=== PATIENT | female | born 1965 | race Hispanic/Latino ===

== ENCOUNTER 2020-06-12 22:41 | Inpatient (IN) | payer OTHER ==
[~2020-06-12] VITALS: Ht 154.9 cm; Wt 68.0 kg
[2020-06-12] MEDS ORDERED: PANTOPRAZOLE 40 MG 10ML VIAL IV STA (22:46)
[2020-06-12] MEDS ORDERED: MORPHINE SULFATE 2 MG/ML SYR 1ML IV STA (22:46)
[2020-06-12] MEDS ORDERED: ONDANSETRON HCL INJ 2MG/ML 2ML 2 MG/ML VIAL IV STA (22:46)
[2020-06-12] MEDS ORDERED: MORPHINE SULFATE INJ 4 MG/ML INJ 1ML ONE (22:58)
[2020-06-12] MEDS ORDERED: DICYCLOMINE HCL 20 MG/2 ML VIAL IM ONE (23:00)
[2020-06-12] MEDS ORDERED: SODIUM CHLORIDE 0.9% 1000ML 1,000 ML IV SCH (23:00)
[2020-06-12 23:08] LABS: BASOPHILS # (AUTO) 0.1 (0.0-0.1); BASOPHILS % 0.5 % (0.0-1.0); HEMATOCRIT 42.9 % (34.2-44.1); HEMOGLOBIN 14.4 g/dL (12.0-16.0); LYMPHOCYTES # (AUTO) 0.7 (1.0-3.2); LYMPHOCYTES % 4.6 % (18.0-39.1); MEAN CORPUSCULAR HEMOGLOBIN 29.9 pg (28-32); MEAN CORPUSCULAR HGB CONC 33.6 g/dL (31-35); MEAN CORPUSCULAR VOLUME 89.2 fL (81-99); MONOCYTES # (AUTO) 0.3 (0.2-0.8); MONOCYTES % 1.9 % (4.4-11.3); NEUTROPHILS % 92.7 % (38.7-80.0); PLATELET COUNT 290 x10e3/uL (140-360); RED BLOOD COUNT 4.81 x10e6/uL (3.6-5.1); RED CELL DISTRIBUTION WIDTH 12.5 % (11.7-14.4)
[2020-06-12 23:09] LABS: BILIRUBIN,URINE NEGATIVE (NEGATIVE); CLARITY,URINE CLEAR (CLEAR); COLOR,URINE YELLOW (YELLOW); KETONES,URINE >=160 (NEGATIVE); LEUKOCYTE ESTERASE ,URINE NEGATIVE (NEGATIVE); NITRITE,URINE NEGATIVE (NEGATIVE); PROTEIN,URINE DIPSTICK 1+ (NEGATIVE); URINE UROBILINOGEN 1 mg/dL (0.2 - 1)
[2020-06-12 23:15] LABS: AMORPHOUS SEDIMENT,URINE FEW (FEW); BACTERIA,URINE FEW /HPF; EPITHELIAL CELLS,URINE MODERATE /LPF; RBC,URINE 0-5 /HPF (0-5); WBC,URINE (MAN) 0-5 /HPF (0-5)
--- OUTSIDE RECORDS SUMMARY | 2020-06-12 23:16 | XMS REPORT | Continuity of Care Document ---
Author Author [facility] t Organization [facility] Address [address] [place] [address] Phone Unavailable Care Team Providers Care Oracle Software Engineer Name Role Phone Hilda Osorio Attphys Problems Condition Name Condition Details Condition Category Status Onset Date Resolution Date Last Treatment Date Treating Clinician Comments Source CINE ESOPHAGRAM DX:K21.9=GASTRO-ESOPHAG CINE ESOPHAGRAM DX:K21.9=GASTRO-ESOPHAG Active 03/03/2016 [facility] Diagnosis Ac tive 2016-03-03 00:00:00 2016-03-14 08:34:00 M wolf Gunn UNK UNK Active 02/28/2016 [facility] Diagnosis Active 2016-02-28 00:00:00 2016-03-13 10:04:00 M wolf Gunn E66.01 E66. 01 Active 10/12/2015 [facility] Diagnosis Active 2015-10-12 00:00:00 2016-03-07 11:21:00 Db Gunn Allergies, Adverse Reactions, Alerts This patient has no known allergies or adverse reactions. Social History Social Habit Start Date Stop Date Quantity Comments Source Social History 2016-03-05 13:54:32 2016-03-05 13:54:32 Db Gunn Medications Ordered Medication Name Filled Medication Name Start Date Stop Da te Current Medication? Ordering Clinician Indication Dosage Frequency Signature (SIG) Comments Components Source Sodium Chloride 0.154 MEQ/ML Injectable Solution 2016-03-13 12:4 8:00 No 1,000 mL, Rate: 25 ml/hr, In fuse over: 40 hr, Route: IV, Dosing Weight 78.636 kg, Total Volume: 1,000, Start date: 03/13/16 7:48:00 CDT, Duration: 1 day, Stop date: 03/14/16 7:47:00 CDT Db sifuentes hormones 2016-03-05 13:47:00 Yes hor [place], PO, Daily, Refill(s) 0 Db Yeann Fish Oil 2016-03-05 13:46:00 Yes PO, Daily, 0 Refill([facility]) [facility] Vitamin B12 2016-03-05 13:46:00 Yes Daily, 0 Refill(s) [facility] multivitamin 2016-03-05 13:46:00 Yes Daily, 0 Refill(s) Db Luis A Hydrochlorothiazide 12.5 MG / Lisinopril 10 MG Oral Tablet 2016-03-05 13:44:00 Yes 1 tab, PO, Daily, # 30 tab, 0 R efill(s) [facility] Vital Signs Vital Name Observation Time Observation Value Comments Source Systolic (mm Hg) 2016-03-13 15:34:00 Oneal rial Luis A Diastolic (mm Hg) 2016-03-13 15:34:00 Mem orial Luis A Respitory Rate 2016-03-13 15:34:00 [facility] [place] Systolic (mm Hg) 2016-03-13 15:30:00 Oneal rial [place] Diastolic (mm Hg) 2016-03-13 15:30:00 Mem orial Luis A Respitory Rate 2016-03-13 15:30:00 Memori al Luis A Respitory Rate 2016-03-13 15:15:00 Memori al Luis A Systolic (mm Hg) 2016-03-13 15:15:00 Oneal rial [place] Diastolic (mm Hg) 2016-03-13 15:15:00 Mem orial [place] Temperature Oral (F) 2016-03-05 13:50:00 98.0 F [facility] Heart Rate 2016-03-05 13:50:00 [facility] Weight 2016-03-05 13:38:00 [facility] BMI Calculated 2016-03-05 13:38:00 Memori al [facility] A Height 2016-03-05 13:38:00 154.94 cm [facility] Procedures Procedure Date / Time Performed Performing Clinician [facility] Hernia repair<sup>1</sup> [facility] [place] Encounters Start Date/Time End Date/Time Encounter Type [facility] Encounter ID Source 2016-03-05 09:25:00 2016-04-03 23:59:00 Outpatient Lily Osorio W [facility] [id number] 2016-03-14 08:25:00 2016-03-14 23:59:00 Outpatient Lily Osorio [facility] [id number] 2016-03-13 07:28:00 2016-03-13 10:40:00 Out[place] Osor[place] [facility] [id number] Results Test Description Test Time Test Comments Results Result Comments Source SCR MAMM BILATERAL BRANDON CAD DIGITAL 2019-07-18 15:28:22 - SCR MAMM BILATERAL BRANDON CAD DIGITALBILATERAL DIGITAL SCREENING MAMMOGRAM 3D/2D WITH CAD: 07/15/2019CLINICAL: Asymptomatic. Digital breast tomosynthesis was performed in addition to routine CC and MLO views. Current mammographic images were evaluated by either a Zite M-Vu or a [employer] ImageNuokang Medicineer CAD (computer aided detection system). Comparison is made to exams dated 05/05/2017 mammogram - [facility], 11/10/2013 mammogram, and 10/18/2013 mammogram - [facility]. There are scattered fibroglandular tissues in both breasts. There is a stable benign-appearing asymmetry and a benign calcification in both breasts. No suspicious new mass, architectural distortion, malignant type calcification, or lymph node abnormality detected. Breast architecture is stable compared to prior exams.IMPRESSION: BENIGNThere is no mammographic evidence of malignancy. Resume annual screening mammography in one year. Bora Lyle M.D. rb/:07/18/2019 15:28:22 Railroad Track Inspector: Nu LEE, [facility] sent: BIRADS 1-2 Normal Mammogram BI-RADS: 2 Benign ANEMIA STUDY 2016-03-05 14:04:00 >2000 Mem orial Luis A CHEM PANEL 2016-03-05 14:04:00 2.5 Memor ial [facility] A CHEM PANEL 2016-03-05 14:04:00 102 Memor ial [place] CHEM PANEL 2016-03-05 14:04:00 13 Memor ial Luis A CHEM PANEL 2016-03-05 14:04:00 0.68 Memor [facility] [place] CHEM PANEL 2016-03-05 14:04:00 112 Memor ial [place] CHEM PANEL 2016-03-05 14:04:00 19 Memor [facility] [place] CHEM PANEL 2016-03-05 14:04:00 92 Memor ial Luis A CHEM PANEL 2016-03-05 14:04:00 0.3 Memor ial [place] CHEM PANEL 2016-03-05 14:04:00 13.8 Memor ial [facility] A CHEM PANEL 2016-03-05 14:04:00 3.7 Memor ial [place] CHEM PANEL 2016-03-05 14:04:00 1.1 Memor ial [facility] A CHEM PANEL 2016-03-05 14:04:00 105 Memor ial [facility] A CHEM PANEL 2016-03-05 14:04:00 25 Memor ial [place] CHEM PANEL 2016-03-05 14:04:00 3.8 Memor [facility] [place] CHEM PANEL 2016-03-05 14:04:00 140 Memor ial Luis A CHEM PANEL 2016-03-05 14:04:00 33 Memor [facility] [place] CHEM PANEL 2016-03-05 14:04:00 7.9 Memor [facility] [place] CHEM PANEL 2016-03-05 14:04:00 4.2 Memor [facility] [place] CHEM PANEL 2016-03-05 14:04:00 8.9 Memor ial Luis A CHEM PANEL 2016-03-05 14:04:00 15 Memor ial Luis A
--- OUTSIDE RECORDS SUMMARY | 2020-06-12 23:16 | XMS REPORT | Continuity of Care Document ---
Author Author [facility] [employer] Address Unknown Phone Unavailable Care Team Providers Care Bulk Mail Technician Name Role Phone [facility] Giftology Information In[place] Unavailable Un available Problems Problem Status Onset Date Classification Date Reported Comments Source CINE ESOPHAGRAM DX:K21.9=GASTRO-ESOPHAG Active 03/03/2016 [facility] UNK Active 0 02/28/2016 [facility] E66.01 Active 10/12/2015 [facility] Medications Medication Details Route Status Patient Instructions Ordering Provider Order Date Source Sodium Chloride 0.154 MEQ/ML Injectable Solution 1,000 mL, Rate: 25 ml/hr, Infuse over: 40 hr, Route: IV, Dosing Weight 78.636 kg, Total Volume: 1,000, Start date: 03/13/16 7:48:00 CDT, Duration: 1 day, Stop date: 03/14/16 7:47:00 CDT Inactive 03/13/2016 [facility] hormones hormones, PO, Daily, Refill(s) 0 Active 03/05/2016 [facility] Fish Oil PO, Daily, 0 Refill(s) Active 03/05/2016 [facility] Vitamin B12 Daily, 0 Refill(s) Active 03/05/2016 [facility] multivitamin Daily, 0 Refill(s) Active 03/05/2016 [facility] Hydrochlorothiazide 12.5 MG / Lisinopril 10 MG Oral Tablet 1 tab, PO, Daily, # 30 tab, 0 Refill(s) Active 03/05/2016 [facility] Allergies, Adverse Reactions, Alerts No Known Medication Allergies Immunizations No Data Provided for This Section Results Order Name Results Value Reference Range Date Interpretation Comments Source ANEMIA STUDY Vitamin B12 Lvl >20 00 254 - 1320 03/05/2016 [facility] CHEM PANEL Magnesium Lvl 2.5 1.8 - 2.4 03/05/2016 [facility] CHEM PANEL eGFR 102 03/05/2016 Result Comment: The eGFR is calculated using the CKD-EPI formula. In most young, healthy individuals the eGFR will be >90 mL/min/1.73m2. The eGFR declines with age. An eGFR of 60-89 may be normal in some populations, particularly the elderly, for whom the CKD-EPI formula has not been extensively validated. Use of the eGFR is not recommended in the following populations:

Individuals with unstable creatinine concentrations, including patients and those with serious co-morbid conditions.

Patients with extremes in muscle mass or diet.

The data above are obtained from the National Kidney Disease Education Program (NKDEP) which additionally recommends that when the eGFR is used in patients with extremes of body mass index for purposes of drug dosing, the eGFR should be multiplied by the estimated BMI. [facility] CHEM PANEL BUN 13 7 - 22 03/05/2016 [facility] CHEM PANEL Creatinine Lvl 0.68 0.50 - 1.40 03/05/2016 [facility] CHEM PANEL Glucose Lvl 112 70 - 99 03/05/2016 [facility] CHEM PANEL B/C Ratio 19 6 - 25 03/05/2016 [facility] CHEM PANEL Alk Phos 92 39 - 136 03/05/2016 [facility] CHEM PANEL Bili Total 0.3 0.2 - 1.3 03/05/2016 [facility] CHEM PANEL AGAP 13.8 10.0 - 20.0 03/05/2016 [facility] CHEM PANEL Globulin 3.7 2.0 - 4.0 03/05/2016 [facility] CHEM PANEL A/G Ratio 1.1 0.7 - 1.6 03/05/2016 [facility] CHEM PANEL Chloride Lvl 105 95 - 109 03/05/2016 [facility] CHEM PANEL CO2 25 24 - 32 03/05/2016 [facility] CHEM PANEL Potassium Lvl 3.8 3.5 - 5.1 03/05/2016 [facility] CHEM PANEL Sodium Lvl 140 135 - 145 03/05/2016 [facility] CHEM PANEL ALT 33 0 - 65 03/05/2016 [facility] CHEM PANEL Total Protein 7.9 6.4 - 8.4 03/05/2016 [facility] CHEM PANEL Albumin Lvl 4.2 3.5 - 5.0 03/05/2016 [facility] CHEM PANEL Calcium Lvl 8.9 8.5 - 10.5 03/05/2016 [facility] CHEM PANEL AST 15 0 - 37 03/05/2016 [facility] IMMUNOLOGY 21-Hydroxylase Antibody N EGATIVE NEGATIVE 03/05/2016 Result Comment:
Patient with indet erminate result may benefit from
serial testing to confirm positivity.
Test Performed at:
[facility]
[id number] [facility]
[place] [id number] Omar Hernandez MD, PhD [facility] Pathology Reports No Data Provided for This Section Diagnostic Reports Report Value Date Source Barium Swallow w Esophagus Function DX Barium Swallow w Esophagus Function DX CLINICAL HISTORY: K21.9 Gastro-esophageal reflux disease without esophagitis. preop for gastric sleeve COMPARISON: None TECHNIQUE: Thin barium was utilized for recumbent prone oblique and LPO images. Thick barium was utilized for upright imaging of the esophagus and pharynx. Hamburger meat mixed with barium was given to evaluate motility with solids. FINDINGS: There is no delay in passage of the barium bolus from the pharynx into the esophagus. The cricopharyngeus relaxes normally. There is no evidence for cricopharyngeal bar or Zenker's diverticulum. Prone and LPO images of the esophagus reveal small hiatal hernia approximately 1.5 cm in sagittal length. No significant delay in passage of barium from the esophagus to the stomach. Upright images with thick barium reveals no significant dysmotility. No mass lesions or strictures are visualized. Mild gastroesophageal reflux. Subsequently 2 separate swallows of a small piece of hamburger meat and barium were fluoroscopically followed through the length of the esophagus. There is no significant delay in passage of both solid boluses from the pharynx to the esophagus and subsequently into the stomach. IMPRESSION: Tiny hiatal hernia is visualized at the GE junction. Mild gastroesophageal reflux. Fluoroscopy Time: 2.0 minutes SL: [id number] 03/14/2016 [facility] Consultation Notes No Data Provided for This Section Discharge Summaries No Data Provided for This Section History and Physicals No Data Provided for This Section Vital Signs Vital Sign Value Date Comments Source Systolic (mm Hg) 126 03/13/2016 [facility] Diastolic (mm Hg) 76 03/13/2016 [facility] Respitory Rate 20 03/13/2016 [facility] Systolic (mm Hg) 126 03/13/2016 [facility] Diastolic (mm Hg) 76 03/13/2016 [facility] Respitory Rate 23 03/13/2016 [facility] Respitory Rate 12 03/13/2016 [facility] Systolic (mm Hg) 120 03/13/2016 [facility] Diastolic (mm Hg) 77 03/13/2016 [facility] Temperature Oral (F) 98.0 F 03/05/2016 [facility] Heart Rate 68 03/05/2016 [facility] Weight 78.636 03/05/2016 [facility] BMI Calculated 32.76 03/05/2016 [facility] Height 154.94 cm 03/05/2016 [facility] Encounters Location Location Details Encounter Type Encounter Number Reason For Visit Attending Provider ADM Date DC Date Status Source [facility] OP Recurring [id number] Mega Osorio 03/05/2016 04/04/2016 [facility] Bedded Outpatient [id number] Mega Osorio 03/13/2016 03/13/2016 [facility] Outpatient [id number] Mega Osorio 03/14/2016 03/15/2016 [facility] Procedures Procedure Code Date Perfomer Comments Source Hernia repair<sup>1</sup> [id number] 1999 [facility] Assessment and Plan No Data Provided for This Section Plan of Care No Data Provided for This Section Social History Social History Date Source Social History TypeResponse Substance Abuse Use: None. Alcohol Current, Type Wine. Frequency: 1-2 times per month. Smoking Status Never smoker; Concerns about tobacco use in household: No; Exposure to Tobacco Smoke None; Cigarette Smoking Last 365 Days No; Reg Smoking Cessation Counseling No 03/05/2016 [facility] Family History No Data Provided for This Section Advance Directives No Data Provided for This Section Functional Status No Data Provided for This Section
[2020-06-12 23:18] LABS: ALBUMIN 5.3 g/dL (3.5-5.0)
--- NOTE | 2020-06-12 23:23 | Emergency Department Note ---
History of Present Illnes History of Present Illness Chief Complaint: Abdominal Complaints History of Present Illness This is a 55 year old female PRESENTS VIA EMS WITH N/V AND ABD PAIN SINCE ABOUT 10 AM, STATES ENTIRE ABDOMEN HURTS AND HER LEGS ARE NOW ACHY WELL. DENIES FEVER, DENIES DIARRHEA. Historian: Patient, [place] [facility] Operator/EMS Arrival Mode: [facility] Onset (how long ago): hour(s) (13) Location: ABD Quality: PAIN, N/V Radiation: Reports non-radiation Severity: moderate Onset quality: sudden Duration (how long): hour(s) (13) Timing of current episode: constant Progression: worsening Chronicity: new Context: Denies recent illness, Denies recent surgery, Denies trauma/injury Relieving factors: none Exacerbating factors: none Associated symptoms: Reports malaise, Reports weakness, Reports other (ACHING TO LEGS) Treatments prior to arrival: none Past Medical/Family History Physician Review I have reviewed the patient's past medical and family history. Any updates have been documented here. Past Medical History Recent Fever: No Clinical Suspicion of Infectio: No New/Unexplained Change in Ment: No Past Medical History: Hypertension, Chronic Back Pain Other Surgery: gastric sleeve tummy tuck Social History Smoking Cessation: Never Smoker Counseling Performed: No Alcohol Use: None Any Illegal Drug Use: No Family History Family history of heart diseas: No Other Any Pre-Existing Lines (PICC,: No Review of Systems Review of Systems Constitutional: Reports no symptoms EENTM: Reports no symptoms Cardiovascular: Reports no symptoms Respiratory: Reports no symptoms Gastrointestinal: Reports as per HPI Genitourinary: Reports no symptoms Musculoskeletal: Reports as per HPI Integumentary: Reports no symptoms Neurological: Reports no symptoms Psychological: Reports no symptoms Endocrine: Reports no symptoms Hematological/Lymphatic: Reports no symptoms Physical Exam Related Data Allergies: Coded Allergies: DARIUSZ Inhibitors (Verified Allergy, Intermediate, 06/12/20) Triage Vital Signs Vital Signs Date Time Temp Pulse Resp B/P (MAP) Pulse Ox O2 Delivery O2 Flow Rate FiO2 06/12/20 22:43 98.4 118 17 150/98 100 Room Air Vital signs reviewed: Yes Physical Exam CONSTITUTIONAL Constitutional: Present well-developed, Present well-nourished, Present distressed (MILD) HENT HENT: Present normocephalic, Present atraumatic, Present mucosae dry, Present nose normal HENT L/R: Present left ext ear normal, Present right ext ear normal EYES Eyes: Reports PERRL, Reports conjunctivae normal NECK Neck: Present ROM normal PULMONARY Pulmonary: Present effort normal, Present breath sounds normal CARDIOVASCULAR Cardiovascular: Present regular rhythm, Present heart sounds normal, Present capillary refill normal, Present tachycardia (115) GASTROINTESTINAL Abdominal: Present soft, Present bowel sounds normal, Present tender (DIFFUSE MODERATE TENDERNESS TO PALPATION); Absent guarding, Absent mass, Absent rebound, Absent left CVA tenderness, Absent right CVA tenderness GENITOURINARY Genitourinary: Present exam deferred SKIN Skin: Present warm, Present dry MUSCULOSKELETAL Musculoskeletal: Present ROM normal NEUROLOGICAL Neurological: Present alert, Present oriented x 3, Present no gross motor or sensory deficits PSYCHOLOGICAL Psychological: Present mood/affect normal, Present judgement normal Results Laboratory Result Diagram: 06/12/20 2244 Laboratory Laboratory Tests Test 06/12/20 23:48 06/12/20 22:44 Lactic Acid Level 2.6 mmol/L (0.5-2.0) White Blood Count 15.07 x10e3/uL (4.8-10.8) Red Blood Count 4.81 x10e6/uL (3.6-5.1) Hemoglobin 14.4 g/dL (12.0-16.0) Hematocrit 42.9 % (34.2-44.1) Mean Corpuscular Volume 89.2 fL (81-99) Mean Corpuscular Hemoglobin 29.9 pg (28-32) Mean Corpuscular Hemoglobin Concent 33.6 g/dL (31-35) Red Cell Distribution Width 12.5 % (11.7-14.4) Platelet Count 290 x10e3/uL (140-360) Neutrophils (%) (Auto) 92.7 % (38.7-80.0) Lymphocytes (%) (Auto) 4.6 % (18.0-39.1) Monocytes (%) (Auto) 1.9 % (4.4-11.3) Eosinophils (%) (Auto) 0.0 % (0.0-6.0) Basophils (%) (Auto) 0.5 % (0.0-1.0) Neutrophils # (Auto) 14.0 (2.1-6.9) Lymphocytes # (Auto) 0.7 (1.0-3.2) Monocytes # (Auto) 0.3 (0.2-0.8) Eosinophils # (Auto) 0.0 (0.0-0.4) Basophils # (Auto) 0.1 (0.0-0.1) Absolute Immature Granulocyte (auto 0.05 x10e3/uL (0-0.1) Urine Color Yellow (YELLOW) Urine Clarity Clear (CLEAR) Urine pH 9 (5 - 7) Urine Specific [place] 1.020 (1.010-1.025) Urine Protein 1+ (NEGATIVE) Urine Glucose (UA) 2+ (NEGATIVE) Urine Ketones >=160 (NEGATIVE) Urine Blood Negative (NEGATIVE) Urine Nitrite Negative (NEGATIVE) Urine Bilirubin Negative (NEGATIVE) Urine Urobilinogen 1 mg/dL (0.2 - 1) Urine Leukocyte Esterase Negative (NEGATIVE) Urine RBC 0-5 /HPF (0-5) Urine WBC 0-5 /HPF (0-5) Urine Epithelial Cells Moderate /LPF (NONE) Urine Amorphous Sediment Few (FEW) Urine Bacteria Few /HPF (NONE) Sodium Level 138 mmol/L (136-145) Potassium Level 3.4 mmol/L (3.5-5.1) Chloride Level 100 mmol/L (98-107) Carbon Dioxide Level 17 mmol/L (22-29) Anion Gap 24.4 mmol/L (8-16) Blood Urea Nitrogen 11 mg/dL (7-26) Creatinine 0.82 mg/dL (0.57-1.11) Estimat Glomerular Filtration Rate > 60 ML/MIN (60-) BUN/Creatinine Ratio 13 (6-25) Glucose Level 191 mg/dL (74-118) Calcium Level 9.9 mg/dL (8.4-10.2) Total Bilirubin 0.6 mg/dL (0.2-1.2) Aspartate Amino Transf (AST/SGOT) 52 IU/L (5-34) Alanine Aminotransferase (ALT/SGPT) 66 IU/L (0-55) Alkaline Phosphatase 113 IU/L (40-150) Creatine Kinase 59 IU/L (29-168) Creatine Kinase MB 0.20 ng/mL (0-5.0) Troponin I < 0.001 ng/mL (0-0.300) Total Protein 8.4 g/dL (6.5-8.1) Albumin 5.3 g/dL (3.5-5.0) Globulin 3.1 g/dL (2.3-3.5) Albumin/Globulin Ratio 1.7 (0.8-2.0) Amylase Level 2559 U/L (25-125) Lipase 4741 U/L (8-78) Laboratory Tests Test 06/12/20 22:44 White Blood Count 15.07 x10e3/uL (4.8-10.8) Red Blood Count 4.81 x10e6/uL (3.6-5.1) Hemoglobin 14.4 g/dL (12.0-16.0) Hematocrit 42.9 % (34.2-44.1) Mean Corpuscular Volume 89.2 fL (81-99) Mean Corpuscular Hemoglobin 29.9 pg (28-32) Mean Corpuscular Hemoglobin Concent 33.6 g/dL (31-35) Red Cell Distribution Width 12.5 % (11.7-14.4) Platelet Count 290 x10e3/uL (140-360) Neutrophils (%) (Auto) 92.7 % (38.7-80.0) Lymphocytes (%) (Auto) 4.6 % (18.0-39.1) Monocytes (%) (Auto) 1.9 % (4.4-11.3) Eosinophils (%) (Auto) 0.0 % (0.0-6.0) Basophils (%) (Auto) 0.5 % (0.0-1.0) Neutrophils # (Auto) 14.0 (2.1-6.9) Lymphocytes # (Auto) 0.7 (1.0-3.2) Monocytes # (Auto) 0.3 (0.2-0.8) Eosinophils # (Auto) 0.0 (0.0-0.4) Basophils # (Auto) 0.1 (0.0-0.1) Absolute Immature Granulocyte (auto 0.05 x10e3/uL (0-0.1) Urine Color Yellow (YELLOW) Urine Clarity Clear (CLEAR) Urine pH 9 (5 - 7) Urine Specific [place] 1.020 (1.010-1.025) Urine Protein 1+ (NEGATIVE) Urine Glucose (UA) 2+ (NEGATIVE) Urine Ketones >=160 (NEGATIVE) Urine Blood Negative (NEGATIVE) Urine Nitrite Negative (NEGATIVE) Urine Bilirubin Negative (NEGATIVE) Urine Urobilinogen 1 mg/dL (0.2 - 1) Urine Leukocyte Esterase Negative (NEGATIVE) Urine RBC 0-5 /HPF (0-5) Urine WBC 0-5 /HPF (0-5) Urine Epithelial Cells Moderate /LPF (NONE) Urine Amorphous Sediment Few (FEW) Urine Bacteria Few /HPF (NONE) Lab results reviewed: Yes Imaging Imaging results reviewed: Yes Impressions Procedure: CT/CT ABDOMEN/PELVIS W Exam Date: 06/13/20 Exam Time: 2339 REPORT STATUS: Signed EXAM: CT Abdomen and Pelvis WITH contrast INDICATION: ^ABD PAIN ^[id number] ^2339 ^Y COMPARISON: None. TECHNIQUE: Abdomen and pelvis were scanned utilizing a multidetector helical scanner from the lung base to the pubic symphysis after administration of IV contrast. Coronal and sagittal reformations were obtained. Dose modulation, iterative reconstruction, and/or weight based adjustment of the mA/kV was utilized to reduce the radiation dose to as low as reasonably achievable. Routine protocol was performed. Scan was performed when during portal venous phase. IV CONTRAST: 100 mL of Isovue-370 ORAL CONTRAST: None COMPLICATIONS: None RADIATION DOSE: Total DLP: 353.37 mGy*cm Estimated effective dose: (DLP x 0.015 x size factor) mSv CTDIvol has been reviewed. It is below the limits set by the Radiation Protocol Committee (RPC). FINDINGS: LINES and TUBES: None. LOWER THORAX: Unremarkable HEPATOBILIARY: No focal hepatic lesions. No biliary ductal dilation. GALLBLADDER: No radio-opaque stones or sludge. No wall thickening. SPLEEN: No splenomegaly. PANCREAS: Mild peripancreatic edema, especially the body and tail portion. No focal masses or ductal dilatation. ADRENALS: No adrenal nodules KIDNEYS/URETERS: Kidneys enhance symmetrically. No hydronephrosis. No cystic or solid mass lesions. No stones. GI TRACT: No abnormal distention, wall thickening, or evidence of bowel obstruction. There are diverticula within the colon without evidence of diverticulitis. Appendix is normal. Evidence of gastric sleeve surgery. Small hiatal hernia. PELVIC ORGANS/BLADDER: Unremarkable. LYMPH NODES: No lymphadenopathy. VESSELS: Unremarkable. PERITONEUM / RETROPERITONEUM: No free air or fluid. BONES: Degenerative changes of the spine. L4 and L5 limbus vertebra. SOFT TISSUES: Left gluteal mild soft tissue emphysema, likely injection related. IMPRESSION: 1. Acute pancreatitis. 2. Colonic diverticulosis without evidence of diverticulitis. Signed by: Dr. Miguel Rose MD on 06/13/2020 12:20 AM Dictated By: MIGUEL ROSE MD Transcribed By: JACQUELYN on 06/13/2019 COPY TO: LILLIE OLIVIER MD~ Procedures 12 Lead ECG Interpretation ECG Interpretation : ECG: ECG 1 [employer]: Interpreted by ED physician Date: Jun 12, 2020 Time: 22:59 Rhythm: sinus rhythm Rate: normal BPM: 96 QRS axis: normal ST segments normal: Yes T wave inversion: V1, V2, V3, V4, V5 T waves flattening: V6 Other findings: no other findings Clinical Impression: abnormal ECG Assessment & Plan Medical Decision Making MDM PT WITH ABD PAIN, N/V CBC, CMP, AMYLASE, LIPASE, UA, CARDIAC ENZYMES, EKG, CT ABD/PELVIS ORDERED TO EVAL FOR PANCREATITIS, ELEVATED LFT'S, GALLSTONES, APPENDICITIS, COLITIS, DIVERTICULITIS, BOWEL OBSTRUCTION, MYOCARDIAL INFARCTION, UTI MORPHINE 4 MG IV ORDERED ZOFRAN 4 MG IV ORDERED PROTONIX 40 MG IV ORDERED BENTYL 20 MG IM ORDERED NS 1 LITER IV BOLUS ORDERED 2339 PT WITH WBC OF 15K, LACTIC ACID ORDERED, BLOOD CULTURES ORDERED, ZOSYN 3.375 GRAMS IV ORDERED INITIAL LACTIC 2.6 0020 SOURCE PANCREATITIS REPEAT LACTIC 1.[address] PIERRE AND DR ASHBY, ADMIT INPATIENT Assessment & Plan Final Impression: (1) Pancreatitis (2) Abdominal pain (3) Sepsis Depart Disposition: ADMITTED Last Vital Signs Date Time Temp Pulse Resp B/P (MAP) Pulse Ox O2 Delivery O2 Flow Rate FiO2 06/12/20 22:43 98.4 118 17 150/98 100 Room Air Medications in the ED Ondansetron HCl 4 mg NOW STAT IV Last administered on 06/12/20at 22:54; Admin Dose 4 MG; Start 06/12/20 at 22:46; Stop 06/12/20 at 23:01; Status DC Morphine Sulfate 4 mg NOW STAT IV Last administered on 06/12/20at 23:05; Admin Dose 4 MG; Start 06/12/20 at 22:46; Stop 06/12/20 at 23:01; Status DC Dicyclomine HCl 20 mg ONCE ONCE IM Last administered on 06/12/20at 23:05; Admin Dose 20 MG; Start 06/12/20 at 23:00; Stop 06/12/20 at 23:01; Status DC Pantoprazole Sodium 40 mg NOW STAT IV Last administered on 06/12/20at 23:05; Admin Dose 40 MG; Start 06/12/20 at 22:46; Stop 06/12/20 at 23:01; Status DC Sodium Chloride 1,000 ml @ 100 mls/hr Q10H IV Last administered on 06/12/20at 23:05; Admin Dose 100 MLS/HR; Start 06/12/20 at 23:00; Stop 07/12/20 at 22:59 Morphine Sulfate 4 mg STK-MED ONCE .ROUTE ; Start 06/12/20 at 22:58; Stop 06/12/20 at 22:51; Status DC LILLIE OLIVIER MD Jun 12, 2020 23:23
[2020-06-12 23:24] LABS: AMYLASE 2559 U/L (25-125)
[2020-06-12 23:26] LABS: ALANINE AMINOTRANSFERASE 66 IU/L (0-55); ALBUMIN/GLOBULIN RATIO 1.7 (0.8-2.0); ALKALINE PHOSPHATASE 113 IU/L (40-150); ANION GAP 24.4 mmol/L (8-16); BLOOD UREA NITROGEN 11 mg/dL (7-26); BUN/CREATININE RATIO 13 (6-25); CALCIUM 9.9 mg/dL (8.4-10.2); CARBON DIOXIDE 17 mmol/L (22-29); CHLORIDE 100 mmol/L (98-107); CREATINE KINASE 59 IU/L (29-168); CREATININE, SERUM 0.82 mg/dL (0.57-1.11); EST GLOMERULAR FILTRATION RATE > 60 ML/MIN (60-); GLUCOSE 191 mg/dL (74-118); POTASSIUM 3.4 mmol/L (3.5-5.1); SODIUM 138 mmol/L (136-145)
[2020-06-12 23:43] LABS: LIPASE 4741 U/L (8-78)
[2020-06-12] MEDS ORDERED: PIPER-TAZ 3.375 GM 50 ML IV ONE (23:45)
--- NOTE | 2020-06-13 00:09 | NUR ---
ER MD AND PRIMARY RN NOTIFIED AND AWARE OF CRITICAL LAB VALUE, LACTIC ACID 2.6.
[2020-06-13] MEDS ORDERED: SODIUM CHLORIDE 0.9% 1000ML 1,000 ML IV ONE ×2 (00:15)
--- NOTE | 2020-06-13 00:23 | Diagnostic Imaging Report ---
EXAM: CT Abdomen and Pelvis WITH contrast INDICATION: ^ABD PAIN ^[id number] ^2340 ^Y COMPARISON: None. TECHNIQUE: Abdomen and pelvis were scanned utilizing a multidetector helical scanner from the lung base to the pubic symphysis after administration of IV contrast. Coronal and sagittal reformations were obtained. Dose modulation, iterative reconstruction, and/or weight based adjustment of the mA/kV was utilized to reduce the radiation dose to as low as reasonably achievable. Routine protocol was performed. Scan was performed when during portal venous phase. IV CONTRAST: 100 mL of Isovue-370 ORAL CONTRAST: None COMPLICATIONS: None RADIATION DOSE: Total DLP: 353.37 mGy*cm Estimated effective dose: (DLP x 0.015 x size factor) mSv CTDIvol has been reviewed. It is below the limits set by the Radiation Protocol Committee (RPC). FINDINGS: LINES and TUBES: None. LOWER THORAX: Unremarkable HEPATOBILIARY: No focal hepatic lesions. No biliary ductal dilation. GALLBLADDER: No radio-opaque stones or sludge. No wall thickening. SPLEEN: No splenomegaly. PANCREAS: Mild peripancreatic edema, especially the body and tail portion. No focal masses or ductal dilatation. ADRENALS: No adrenal nodules KIDNEYS/URETERS: Kidneys enhance symmetrically. No hydronephrosis. No cystic or solid mass lesions. No stones. GI TRACT: No abnormal distention, wall thickening, or evidence of bowel obstruction. There are diverticula within the colon without evidence of diverticulitis. Appendix is normal. Evidence of gastric sleeve surgery. Small hiatal hernia. PELVIC ORGANS/BLADDER: Unremarkable. LYMPH NODES: No lymphadenopathy. VESSELS: Unremarkable. PERITONEUM / RETROPERITONEUM: No free air or fluid. BONES: Degenerative changes of the spine. L4 and L5 limbus vertebra. SOFT TISSUES: Left gluteal mild soft tissue emphysema, likely injection related. IMPRESSION: 1. Acute pancreatitis. 2. Colonic diverticulosis without evidence of diverticulitis. Signed by: Dr. Miguel Waters MD on 06/13/2020 12:20 AM
[2020-06-13] MEDS ORDERED: SODIUM CHLORIDE 0.9% 50ML 50 ML ONE (00:25)
[2020-06-13] MEDS ORDERED: IOPAMIDOL 370 MG/ML 200 ML INFUS..BTL INJ ONE (00:26)
[2020-06-13] MEDS ORDERED: ACETAMINOPHEN 325 MG TAB PO ONE (00:30)
[2020-06-13] MEDS ORDERED: ACETAMINOPHEN 325 MG TAB ONE (00:34)
--- OUTSIDE RECORDS SUMMARY | 2020-06-13 00:42 | XMS REPORT | Continuity of Care Document ---
Author Author [employer] Address Unknown Phone Unavailable Care Team Providers Care Licensed Midwife Name Role Phone [facility] [employer] Information [employer] Unavailable Un available Problems Problem Status Onset Date Classification Date Reported Comments Source CINE ESOPHAGRAM DX:K21.9=GASTRO-ESOPHAG Active 03/03/2016 [facility] UNK Active 0 02/28/2016 [facility] E66.01 Active 10/12/2015 [facility] Medications Medication Details Route Status Patient Instructions Ordering Provider Order Date Source Sodium Chloride 0.154 MEQ/ML Injectable Solution 1,000 mL, Rate: 25 ml/hr, Infuse over: 40 hr, Route: IV, Dosing Weight 78.636 kg, Total Volume: 1,000, Start date: 03/13/16 7:48:00 CDT, Duration: 1 day, Stop date: 03/14/16 7:47:00 CDT Inactive 03/13/2016 [facility] hormones hormones, PO, Daily, Refill(s) 0 Active 03/05/2016 [facility] Fish Oil PO, Daily, 0 Refill(s) Active 03/05/2016 [facility] Vitamin B12 Daily, 0 Refill(s) Active 03/05/2016 [facility] multivitamin Daily, 0 Refill(s) Active 03/05/2016 [facility] Hydrochlorothiazide 12.5 MG / Lisinopril 10 MG Oral Tablet 1 tab, PO, Daily, # 30 tab, 0 Refill(s) Active 03/05/2016 [facility] Allergies, Adverse Reactions, Alerts No Known Medication Allergies Immunizations No Data Provided for This Section Results Order Name Results Value Reference Range Date Interpretation Comments Source ANEMIA STUDY Vitamin B12 Lvl >20 00 254 - 1320 03/05/2016 [facility] CHEM PANEL Magnesium Lvl 2.5 1.8 - 2.4 03/05/2016 [facility] CHEM PANEL eGFR 102 03/05/2016 Result [...] PANEL BUN 13 7 - 22 03/05/2016 [facility] CHEM PANEL Creatinine Lvl 0.68 0.50 [...] testing to confirm positivity.
Test Performed at:
[facility]
[address]
[place] [id number] Omar Hernandez MD, PhD [facility] Pathology Reports No Data Provided for [...] gastroesophageal reflux. Fluoroscopy Time: 2.0 minutes SL: [id number] 03/14/2016 [facility] Consultation Notes No Data Provided for This Section Discharge Summaries No Data Provided for This Section History and Physicals No Data Provided for This Section Vital Signs Vital Sign Value Date Comments Source Systolic (mm Hg) 126 03/13/2016 [facility] Diastolic (mm Hg) 76 03/13/2016 [facility] Respitory Rate 20 03/13/2016 [facility] Systolic (mm Hg) 126 03/13/2016 [facility] Diastolic (mm Hg) 76 03/13/2016 [facility] Respitory Rate 23 03/13/2016 [facility] Respitory Rate 12 03/13/2016 [facility] Systolic (mm Hg) 120 03/13/2016 [facility] Diastolic (mm Hg) 77 03/13/2016 [facility] Temperature Oral (F) 98.0 F 03/05/2016 [facility] Heart Rate 68 03/05/2016 [facility] Weight 78.636 03/05/2016 [facility] BMI Calculated 32.76 03/05/2016 [facility] Height 154.94 cm 03/05/2016 [facility] Encounters Location Location Details Encounter Type Encounter Number Reason For Visit Attending Provider ADM Date DC Date Status Source [facility] OP Recurring [id number] Mega Osorio 03/05/2016 04/04/2016 [facility] Bedded Outpatient [id number] Mega Osorio 03/13/2016 03/13/2016 [facility] Outpatient [id number] Mega Osorio 03/14/2016 03/15/2016 [facility] Procedures Procedure Code Date Perfomer Comments Source Hernia repair<sup>1</sup> [id number] [facility] Assessment and Plan No Data Provided [...] No; Reg Smoking Cessation Counseling No 03/05/2016 [facility] Family History No Data Provided for This Section Advance Directives No Data Provided for This Section Functional Status No Data Provided for This Section
--- OUTSIDE RECORDS SUMMARY | 2020-06-13 00:42 | XMS REPORT | Continuity of Care Document ---
Author Author [facility] t Organization [facility] Address [address] [place] [address] Phone Unavailable Care Team Providers Care [employer] Business [employer] Name Role Phone Dada OLIVIER Attphys Unavailable Hilda Osorio Attphys Problems Condition Name Condition Details Condition Category Status Onset Date Resolution Date Last Treatment Date Treating Clinician Comments Source CINE ESOPHAGRAM DX:K21.9=GASTRO-ESOPHAG CINE ESOPHAGRAM DX:K21.9=GASTRO-ESOPHAG Active 03/03/2016 [facility] Diagnosis Ac tive 2016-03-03 00:00:00 2016-03-14 08:34:00 M wolf Gunn UNK UNK Active 02/28/2016 [facility] Diagnosis Active 2016-02-28 00:00:00 2016-03-13 10:04:00 M wolf Gunn E66.01 E66. 01 Active 10/12/2015 [facility] Diagnosis Active 2015-10-12 00:00:00 2016-03-07 [...] 1 day, Stop date: 03/14/16 7:47:00 CDT [facility] hormones 2016-03-05 13:47:00 Yes hor [place], PO, Daily, Refill(s) 0 [facility] Fish Oil 2016-03-05 13:46:00 Yes PO, Daily, 0 Refill(s) [facility] Vitamin B12 2016-03-05 13:46:00 Yes Daily, 0 Refill(s) [facility] multivitamin 2016-03-05 13:46:00 Yes Daily, 0 Refill(s) [facility] [place] Hydrochlorothiazide 12.5 MG / Lisinopril 10 MG Oral Tablet 2016-03-05 13:44:00 Yes 1 tab, PO, Daily, # 30 tab, 0 R efill(s) [facility] Vital Signs Vital Name Observation Time Observation Value Comments Source Systolic (mm Hg) 2016-03-13 15:34:00 Oneal rial Luis A Diastolic (mm Hg) 2016-03-13 15:34:00 Mem orial [place] Respitory Rate 2016-03-13 15:34:00 Memori al [place] Systolic (mm Hg) 2016-03-13 15:30:00 Oneal rial Luis A Diastolic (mm Hg) 2016-03-13 15:30:00 Mem orial [place] Respitory Rate 2016-03-13 15:30:00 Memori al [place] Respitory Rate 2016-03-13 15:15:00 Memori al Luis A Systolic (mm Hg) 2016-03-13 15:15:00 Oneal rial Luis A Diastolic (mm Hg) 2016-03-13 15:15:00 Mem orial Luis A Temperature Oral (F) 2016-03-05 13:50:00 98.0 F [facility] Heart Rate 2016-03-05 13:50:00 [facility] Weight 2016-03-05 13:38:00 [facility] BMI Calculated 2016-03-05 13:38:00 Mazin al [place] Height 2016-03-05 13:38:00 154.94 cm [facility] Procedures Procedure Date / Time Performed Performing Clinician [facility] e Hernia repair<sup>1</sup> Mazin Macias Encounters Start Date/Time End Date/Time Encounter Type Admission Type Attendi [facility] Care Department Encounter ID Source 2016-03-05 09:25:00 2016-04-03 23:59:00 Outpatient Lily Osorio W [facility] [id number] 2016-03-14 08:25:00 2016-03-14 23:59:00 Outpatient Lily Osorio [facility] [id number] 2016-03-13 07:28:00 2016-03-13 10:40:00 [id number] Results Test Description Test Time Test Comments Results Result Comments Source CT ABDOMEN/PELVIS W 2020-06-13 00:10:00 [place] [address] Patient Name: DAKOTA NIETO MR #: [id number] : 1965 Age/Sex: 55/F Req #: [id number] [facility] Physician: Ordered by: LILLIE OLIVIER MD Report #: [id number] Location: ER Room/Bed: Procedure: CT/CT ABDOMEN/PELVIS W Exam Date: 06/13/20 Exam Time: 2339 REPORT STATUS: Signed EXAM: CT Abdomen and Pelvis WITH contrast INDICATION: ABD PAIN 20200613 Y COMPARISON: None. TECHNIQUE: Abdomen and pelvis were scanned utilizing a multidetector helical scanner from the lung base to the pubic symphysis after administration of IV contrast. Coronal and sagittal reformations were obtained. Dose modulation, iterative reconstruction, and/or weight based adjustment of the mA/kV was utilized to reduce the radiation dose to as low as reasonably achievable. Routine protocol was performed. Scan was performed when during portal venous phase. IV CONTRAST: 100 mL of Isovue-370 ORAL CONTRAST: None COMPLICATIONS: None RADIATION DOSE: Total DLP: 353.37 mGy*cm Estimated effective dose: (DLP x 0.015 x size factor) mSv CTDIvol has been reviewed. It is below the limits set by the Radiation Protocol Committee (RPC). FINDINGS: LINES and TUBES: None. LOWER THORAX: Unremarkable HEPATOBILIARY: No focal hepatic lesions. No biliary ductal dilation. GALLBLADDER: No radio-opaque stones or sludge. No wall thickening. SPLEEN: No splenomegaly. PANCREAS: Mild peripancreatic edema, especially the body and tail portion. No focal masses or ductal dilatation. ADRENALS: No adrenal nodules KIDNEYS/URETERS: Kidneys enhance symmetrically. No hydronephrosis. No cystic or solid mass lesions. No stones. GI TRACT: No abnormal distention, wall thickening, or evidence of bowel obstruction. There are diverticula within the colon without evidence of diverticulitis. Appendix is normal. Evidence of gastric sleeve surgery. Small hiatal hernia. PELVIC ORGANS/BLADDER: Unremarkable. LYMPH NODES: No lymphadenopathy. VESSELS: Unremarkable. PERITONEUM / RETROPERITONEUM: No free air or fluid. BONES: Degenerative changes of the spine. L4 and L5 limbus vertebra. SOFT TISSUES: Left gluteal mild soft tissue emphysema, likely injection related. IMPRESS ION: 1. Acute pancreatitis. 2. Colonic diverticulosis without evidence of diverticulitis. Signed by: Dr. Miguel Rose MD on 06/13/2020 12:20 AM Dictated By: MIGUEL ROSE MD Transcribed By: JACQUELYN on 06/13/2019 COPY TO: LILLIE OLIVIER MD SCR MAMM BILATERAL BRANDON CAD DIGITAL 2019-07-18 15:28:22 - SCR MAMM BILATERAL BRANDON CAD DIGITALBILATERAL DIGITAL SCREENING MAMMOGRAM 3D/2D WITH CAD: 07/15/2019CLINICAL: Asymptomatic. Digital breast tomosynthesis was performed in addition to routine CC and MLO views. Current mammographic images were evaluated by either a Excorda M-Vu or a F[employer]Pants ImageChecker CAD (computer aided detection system). Comparison is made to exams dated 05/05/2017 mammogram - [facility] 11/10/2013 mammogram, and 10/18/2013 mammogram - [facility]. There are scattered [...] one year. Bora Lyle M.D. rb/:07/18/2019 15:28:22 Maxillofacial Surgeon: Nu LEE, [facility] sent: BIRADS 1-2 Normal Mammogram BI-RADS: 2 Benign ANEMIA STUDY 2016-03-05 14:04:00 >2000 Mem orial Luis A CHEM PANEL 2016-03-05 14:04:00 2.5 Memor ial [place] CHEM PANEL 2016-03-05 14:04:00 102 Memor ial Luis A CHEM PANEL 2016-03-05 14:04:00 13 Memor ial [place] CHEM PANEL 2016-03-05 14:04:00 0.68 Memor ial Luis A CHEM PANEL 2016-03-05 14:04:00 112 Memor ial [place] CHEM PANEL 2016-03-05 14:04:00 19 Memor ial [place] CHEM PANEL 2016-03-05 14:04:00 92 Memor ial Luis A CHEM PANEL 2016-03-05 14:04:00 0.3 Memor ial [place] CHEM PANEL 2016-03-05 14:04:00 13.8 Memor ial [place] CHEM PANEL 2016-03-05 14:04:00 3.7 Memor ial Luis A CHEM PANEL 2016-03-05 14:04:00 1.1 Memor ial [place] CHEM PANEL 2016-03-05 14:04:00 105 Memor ial [place] CHEM PANEL 2016-03-05 14:04:00 25 Memor ial [place] CHEM PANEL 2016-03-05 14:04:00 3.8 Memor ial Luis A CHEM PANEL 2016-03-05 14:04:00 140 Memor ial [place] CHEM PANEL 2016-03-05 14:04:00 33 Memor ial [place] CHEM PANEL 2016-03-05 14:04:00 7.9 Memor ial Luis A CHEM PANEL 2016-03-05 14:04:00 4.2 Memor ial [place] CHEM PANEL 2016-03-05 14:04:00 8.9 Memor ial [place] CHEM PANEL 2016-03-05 14:04:00 15 Abel Gunn
[2020-06-13] MEDS ORDERED: ACETAMINOPHEN 325 MG TAB PO PRN (00:45)
[2020-06-13] MEDS: HYDROMORPHONE 1MG/1ML INJ IV PRN ×6 (00:54→19:50)
[2020-06-13] MEDS: SODIUM CHLORIDE 0.9% 1000ML 1,000 ML IV SCH ×6 (01:10→20:33)
[2020-06-13] MEDS: ONDANSETRON HCL INJ 2MG/ML 2ML 2 MG/ML VIAL IV PRN ×2 (04:37→19:50)
[2020-06-13] MEDS ORDERED: PIPER-TAZ 3.375 GM / NS 50ML IV SCH (06:00)
--- NOTE | 2020-06-13 06:48 | NUR ---
Report received at bedside from Therese Subramanian RN. Patient's IV patent and infusing. Denies pain at this time. Call light in reach.
--- NOTE | 2020-06-13 06:49 | NUR ---
BEDSIDE ROUNDING DONE WITH FRANCISCO BABB
[2020-06-13] MEDS: PIPER-TAZ 3.375 GM / NS 50ML IV SCH ×2 (09:19→17:48)
--- NOTE | 2020-06-13 09:31 | Diagnostic Imaging Report ---
EXAM: US ABDOMEN COMPLETE DATE: 06/13/2020 8:45 AM INDICATION: ^elevated LFT COMPARISON: CT dated 06/12/2020 TECHNIQUE: Transverse and longitudinal bains scale and color doppler sonographic images of the abdomen were obtained. FINDINGS: LIVER 11.9 cm in the right midclavicular line. Normal echogenicity of the liver with normal contour, no masses. SPLEEN 8.6 cm in maximum diameter. Normal echogenicity, no masses. GALLBLADDER No gallbladder wall thickening, distension, stone, or pericholecystic fluid. Small amount of dependent gallbladder sludge is noted. Negative reported sonographic Caballero's sign. BILE DUCTS No intra nor extra-hepatic biliary dilation. Common bile duct measures 0.3cm PANCREAS: Visualized portions are normal. RIGHT KIDNEY: 10.4 cm Echogenicity: Normal Collecting System: No hydronephrosis Stones: None Cyst/Mass: None LEFT KIDNEY: 9.8 cm Echogenicity: Normal Collecting System: No hydronephrosis Stones: None Cyst/Mass: None VESSELS: Aorta: Visualized portions are within normal size limits Inferior Vena Cava: Visualized portions are normal Main Portal Vein: 0.7 cm, normal size with hepatopetal flow. FREE FLUID: None IMPRESSION: Gallbladder sludge. Negative for ultrasound evidence of cholecystitis. Negative for biliary dilatation. Negative for hydronephrosis or perinephric fluid collection. Signed by: Twin Palafox MD on 06/13/2020 9:28 AM
--- NOTE | 2020-06-13 09:51 | History and Physical ---
REASON FOR ADMISSION: Pancreatitis. HISTORY OF PRESENT ILLNESS: The patient is a 55-year-old lady, who presented with 1 day complaint of abdominal pain and nausea, where she was noticed on chemical data to have evidence of pancreatitis as well on CT scan showing evidence of pancreatitis. She has been admitted for further evaluation and treatment. PAST MEDICAL HISTORY: Significant for hypertension and diabetes. The patient states no prior history of pancreatitis. SOCIAL HISTORY: She is a social drinker, but nothing significant recently. Nonsmoker. FAMILY HISTORY: Hypertension. ALLERGIES: DARIUSZ INHIBITORS. PHYSICAL EXAMINATION: VITAL SIGNS: Temperature 98.6, blood pressure 156/72, pulse 74, sats 100% on room air. GENERAL: No apparent distress, lying in bed. NECK: Supple. CARDIOVASCULAR: Regular rate and rhythm. LUNGS: Clear to auscultation bilaterally. ABDOMEN: Soft with bowel sounds. She was tender in the mid epigastric area with no peritoneal signs. EXTREMITIES: No clubbing or cyanosis. NEUROLOGIC: Nonfocal. ASSESSMENT/PLAN: 1. Pancreatitis. Continue with IV fluids, pain medication, and consult GI and schedule MRCP. 2. Nausea and vomiting. Continue with antiemetics. 3. Hypokalemia. We will replace. 4. Diabetes. We will continue to monitor. 5. Hypertension. Continue to monitor since she is n.p.o. 6. Elevated liver function tests. We will continue to monitor and check with MRCP. 7. Leukocytosis. Continue with IV fluids and IV antibiotics and continue to monitor. Please see hospital chart for full details. MD ZAYNAB Lucio/BRIAN /[id number]
[2020-06-13] MEDS ORDERED: ACETAMINOPHEN-1 EAC4 PO (12:22)
[2020-06-13] MEDS ORDERED: AMLODIPINE BESYL5 MG PO (12:22)
[2020-06-13] MEDS ORDERED: CITALOPRAM HBR20 MG PO (12:22)
--- NOTE | 2020-06-13 12:26 | Diagnostic Imaging Report ---
EXAM: MRI of the abdomen without contrast with MRCP INDICATION: Acute pancreatitis. COMPARISON: CT and ultrasound earlier today TECHNIQUE: Multiplanar and multisequence imaging was performed of the abdomen. T1 and T2-weighted images were obtained with and without contrast. T1-weighted in and [id number] . No intravenous contrast was administered. M.R.C.P. technique: Multiplanar, multisequence MRCP was performed, with sequences including coronal turbo spin-echo T1-weighted scans, [facility] MRCP scans, coronal spin, coronal MPR 2, [facility] HR, [facility] MRCP MUNGUIA. Discussion: LOWER THORAX: Unremarkable. HEPATOBILIARY: 2.5 cm cyst in segment 2 of the liver. No biliary ductal dilation. No filling defect to suggest choledocholithiasis. GALLBLADDER: No stones or sludge. No wall thickening. SPLEEN: No splenomegaly. PANCREAS: There is peripancreatic edema. No pancreatic ductal dilation. Pancreas demonstrates normal T1 signal intensity. No evidence of pancreatic divisum. No mass. ADRENALS: No adrenal nodules KIDNEYS/URETERS: No hydronephrosis. No cystic or solid mass lesions. GI TRACT: No abnormal distention, wall thickening, or evidence of bowel obstruction. Status post gastric sleeve resection. Appendix is normal. LYMPH NODES: No lymphadenopathy. VESSELS: Unremarkable. PERITONEUM / RETROPERITONEUM: No free air or fluid. BONES: Degenerative changes are noted in spine. SOFT TISSUES: Unremarkable. IMPRESSION: Acute pancreatitis. No evidence of cholelithiasis or choledocholithiasis. No biliary ductal dilation. Signed by: Mynor Luna MD on 06/13/2020 12:22 PM
--- NOTE | 2020-06-13 12:27 | Consultation ---
DATE OF CONSULTATION: 06/13/2020 HISTORY OF PRESENT ILLNESS: This is 55 years old who has a history of hypertension, presented to the hospital because of abdominal pain along with some nausea and vomiting. The patient was found to have acute pancreatitis with amylase of 2559 and lipase 4741. Her liver enzymes mildly elevated with AST of 52 and ALT of 66. She had a CAT scan of the abdomen and pelvis, which shows acute pancreatitis with diverticulosis, but no evidence of diverticulitis. PAST MEDICAL PROBLEMS: Significant for hypertension, status post gastric sleeve. ALLERGIES: DARIUSZ INHIBITOR. MEDICATIONS: At home supposedly, hydrochlorothiazide. SOCIAL HISTORY: No smoking. Drink wine occasionally. FAMILY HISTORY: Contributory. REVIEW OF SYSTEMS: Denies any chest pain or shortness of breath. Denies any dysphagia, odynophagia. Denies any dysuria, hematuria, or any kind of syncopal episode. PHYSICAL EXAMINATION: GENERAL: Awake, alert, appears to be stable, not in acute distress at this point. VITAL SIGNS: Afebrile, currently with stable vital signs. HEAD, EYES, EARS, NOSE, AND THROAT: Normocephalic, atraumatic. Sclerae are anicteric. NECK: Supple. HEART: Regular. LUNGS: Clear. ABDOMEN: Soft. There is no distention at this point, and has some tenderness in the epigastric area. There is no rebound or mass. EXTREMITIES: No clubbing. LABORATORY VALUES: WBC of 15.07. Lipase of 4741. Liver enzymes little bit high. IMPRESSION: 1. Acute pancreatitis. Etiology is unclear at this point. 2. Mild elevated liver function tests. 3. Hypertension. RECOMMENDATION: Keep n.p.o., IV fluids as well as pain control. Follow labs. I will obtain abdominal ultrasound. Raulito Wiggins MD DHD/MODL /[id number] cc: Evaristo Wray MD
[2020-06-13 13:29] VITALS: BP 147/96
[2020-06-13 16:30] VITALS: BP 164/94
--- NOTE | 2020-06-13 19:00 | NUR ---
RECEIVED PATIENT IN BEDSIDE SHIFT REPORT. PATIENT RESTING IN BED AT THIS TIME. PAIN 10/10, GENERALIZED, BUT MORE IN HEAD AND NECK. NO PAIN TO ABDOMEN REPORTED. NO N/V REPORTED. WILL MEDICATE. NS RUNNING AT 250ML/HR TO L FA 18G, ASYMPTOMATIC. BED LOCKED IN LOWEST POSITION, SIDE RAILS UPX2, CALL LIGHT IN REACH.
[2020-06-13 19:54] VITALS: BP 162/100
[2020-06-13 20:00] VITALS: BP 171/98
[2020-06-13] MEDS ORDERED: HYDRALAZINE HCL 20 MG/ML VIAL IV PRN (20:00)
[2020-06-13 20:20] VITALS: BP 151/94
[2020-06-14] VITALS (9 sets, daily range): BP systolic 147–165; BP diastolic 73–92
[2020-06-14] MEDS: HYDROMORPHONE 1MG/1ML INJ IV PRN ×7 (00:10→21:42)
[2020-06-14] MEDS: ONDANSETRON HCL INJ 2MG/ML 2ML 2 MG/ML VIAL IV PRN ×4 (00:10→13:51)
[2020-06-14] MEDS: PIPER-TAZ 3.375 GM / NS 50ML IV SCH ×4 (00:17→23:56)
[2020-06-14] MEDS: SODIUM CHLORIDE 0.9% 1000ML 1,000 ML IV SCH ×6 (00:17→23:56)
--- NOTE | 2020-06-14 04:30 | NUR ---
PATIENT REPORTS VOMITING TWICE IN TRASH, REPORTS IT WAS LIQUIDY AND YELLOWISH, DESCRIBED IT BILE. MEDICATED FOR NAUSEA AND PAIN AT THIS TIME.
[2020-06-14] MEDS ORDERED: HYDRALAZINE HCL 20 MG/ML VIAL IV PRN (05:00)
[2020-06-14 05:15] LABS: BASOPHILS % 0.4 % (0.0-1.0); EOSINOPHILS % 0.1 % (0.0-6.0); HEMATOCRIT 35.3 % (34.2-44.1); HEMOGLOBIN 11.6 g/dL (12.0-16.0); LYMPHOCYTES # (AUTO) 1.5 (1.0-3.2); LYMPHOCYTES % 13.9 % (18.0-39.1); MEAN CORPUSCULAR HEMOGLOBIN 29.1 pg (28-32); MEAN CORPUSCULAR HGB CONC 32.9 g/dL (31-35); MEAN CORPUSCULAR VOLUME 88.7 fL (81-99); MONOCYTES # (AUTO) 0.6 (0.2-0.8); MONOCYTES % 5.9 % (4.4-11.3); NEUTROPHILS # (AUTO) 8.4 (2.1-6.9); NEUTROPHILS % 79.1 % (38.7-80.0); PLATELET COUNT 280 x10e3/uL (140-360); RED BLOOD COUNT 3.98 x10e6/uL (3.6-5.1); RED CELL DISTRIBUTION WIDTH 12.8 % (11.7-14.4)
[2020-06-14 05:44] LABS: ALANINE AMINOTRANSFERASE 37 IU/L (0-55); ALBUMIN 4.3 g/dL (3.5-5.0); ALBUMIN/GLOBULIN RATIO 1.9 (0.8-2.0); ALKALINE PHOSPHATASE 77 IU/L (40-150); AMYLASE 243 U/L (25-125); ANION GAP 14.9 mmol/L (8-16); BLOOD UREA NITROGEN 5 mg/dL (7-26); BUN/CREATININE RATIO 8 (6-25); CALCIUM 8.2 mg/dL (8.4-10.2); CARBON DIOXIDE 18 mmol/L (22-29); CHLORIDE 107 mmol/L (98-107); CREATININE, SERUM 0.59 mg/dL (0.57-1.11); EST GLOMERULAR FILTRATION RATE > 60 ML/MIN (60-); GLUCOSE 102 mg/dL (74-118); LIPASE 125 U/L (8-78); SODIUM 137 mmol/L (136-145)
[2020-06-14 05:46] LABS: POTASSIUM 2.9 mmol/L (3.5-5.1)
[2020-06-14] MEDS ORDERED: POTASSIUM CHLORIDE 20MEQ/100ML 300 ML IV ONE (06:30)
[2020-06-14 09:06] LABS: HYPOCHROMASIA SLIGHT
--- NOTE | 2020-06-14 19:00 | NUR ---
RECEIVED PATIENT IN BEDSIDE SHIFT REPORT. PATIENT RESTING IN BED AT THIS TIME. RECENTLY RECEIVED PAIN MEDICATION, SO ONLY MILD PAIN REPORTED. IV RUNNING NS AT 250ML/HR TO R FA 18G, ASYMPTOMATIC. BED LOCKED IN LOWEST POSITION, SIDE RAILS UPX2, CALL LIGHT IN REACH.
[2020-06-15] MEDS: SODIUM CHLORIDE 0.9% 1000ML 1,000 ML IV SCH ×7 (00:45→23:00)
[2020-06-15] MEDS: HYDROMORPHONE 1MG/1ML INJ IV PRN ×7 (01:10→22:00)
[2020-06-15 03:45] VITALS: BP 150/80
[2020-06-15 05:51] LABS: BASOPHILS # (AUTO) 0.1 (0.0-0.1); BASOPHILS % 0.6 % (0.0-1.0); EOSINOPHILS % 0.4 % (0.0-6.0); HEMATOCRIT 33.4 % (34.2-44.1); HEMOGLOBIN 11.1 g/dL (12.0-16.0); LYMPHOCYTES # (AUTO) 2.5 (1.0-3.2); LYMPHOCYTES % 24.2 % (18.0-39.1); MEAN CORPUSCULAR HEMOGLOBIN 29.8 pg (28-32); MEAN CORPUSCULAR HGB CONC 33.2 g/dL (31-35); MEAN CORPUSCULAR VOLUME 89.8 fL (81-99); MONOCYTES # (AUTO) 0.7 (0.2-0.8); MONOCYTES % 6.7 % (4.4-11.3); NEUTROPHILS # (AUTO) 7.1 (2.1-6.9); NEUTROPHILS % 67.6 % (38.7-80.0); PLATELET COUNT 263 x10e3/uL (140-360); RED BLOOD COUNT 3.72 x10e6/uL (3.6-5.1); RED CELL DISTRIBUTION WIDTH 12.7 % (11.7-14.4)
[2020-06-15 06:20] LABS: ALANINE AMINOTRANSFERASE 37 IU/L (0-55); ALBUMIN/GLOBULIN RATIO 1.9 (0.8-2.0); ALKALINE PHOSPHATASE 73 IU/L (40-150); ANION GAP 14.2 mmol/L (8-16); BLOOD UREA NITROGEN 6 mg/dL (7-26); BUN/CREATININE RATIO 10 (6-25); CALCIUM 8.3 mg/dL (8.4-10.2); CARBON DIOXIDE 22 mmol/L (22-29); CHLORIDE 105 mmol/L (98-107); CREATININE, SERUM 0.63 mg/dL (0.57-1.11); EST GLOMERULAR FILTRATION RATE > 60 ML/MIN (60-); GLUCOSE 77 mg/dL (74-118); MAGNESIUM 1.9 MG/DL (1.3-2.1); POTASSIUM 3.2 mmol/L (3.5-5.1); SODIUM 138 mmol/L (136-145)
[2020-06-15 08:00] VITALS: BP 151/84
[2020-06-15] MEDS ORDERED: POTASSIUM CHLORIDE 20MEQ/100ML 400 ML IV ONE (08:30)
[2020-06-15] MEDS: PIPER-TAZ 3.375 GM / NS 50ML IV SCH ×2 (08:47→15:15)
[2020-06-15 12:00] VITALS: BP 145/82
--- NOTE | 2020-06-15 14:17 | NUR ---
Dr. Wiggins saw patient and discharged patient from his standpoint. Stated to follow up with him 3-4 weeks.
[2020-06-15 17:21] VITALS: BP 146/87
[2020-06-15 19:30] VITALS: BP 132/84
--- NOTE | 2020-06-15 19:46 | NUR ---
Bedside report completed, received pt in bed awake alert x4. Denies acute discomfort at this time, Cont IVF infusing w/o diff. No s/sx of acute distess, bed in low and locked position, call light and personal items within reach.
[2020-06-15 21:00] VITALS: BP 132/84
[2020-06-15] MEDS: ONDANSETRON HCL INJ 2MG/ML 2ML 2 MG/ML VIAL IV PRN (22:00)
[2020-06-16 00:08] VITALS: BP 147/83
[2020-06-16] MEDS: PIPER-TAZ 3.375 GM / NS 50ML IV SCH ×2 (00:30→08:19)
[2020-06-16 05:30] VITALS: BP 157/95
[2020-06-16] MEDS: ONDANSETRON HCL INJ 2MG/ML 2ML 2 MG/ML VIAL IV PRN (05:40)
[2020-06-16] MEDS: HYDROMORPHONE 1MG/1ML INJ IV PRN ×2 (05:40→09:11)
--- NOTE | 2020-06-16 07:00 | NUR ---
RECEIVED PATIENT AWAKE RESTING IN BED NO S/S OF DISTRESS. BED LOW, WHEELS LOCKED, SIDE RAILS X2. CALL LIGHT IN REACH WILL CONTINUE TO MONITOR PATIENT.
[2020-06-16] MEDS: SODIUM CHLORIDE 0.9% 1000ML 1,000 ML IV SCH ×2 (07:41→08:19)
[2020-06-16 08:45] VITALS: BP 158/85
[2020-06-16 08:50] VITALS: BP 158/85
--- NOTE | 2020-06-16 09:06 | Progress Note ---
DATE: SUBJECTIVE: 55-year-old young lady who came in with pancreatitis. The patient is feeling better. Had a good dinner, was able to keep down hamburger meat and also some noodles yesterday. No pain elicited. No chest pain. No shortness of breath. No nausea, no vomiting. No diarrhea. No constipation or rectal bleeding. The patient has no icterus present. OBJECTIVE: VITAL SIGNS: Temperature is 98.4, pulse of 57, respirations of 16, blood pressure is 157/95, and pulse oximetry of 99% on room air. HEENT: Normocephalic and atraumatic. No icterus present. CVS: S1 and S2 normal. Regular rate and rhythm. ABDOMEN: Soft, nontender, and nondistended. EXTREMITIES: No clubbing, no cyanosis, no edema. LABORATORY STUDIES: White count is 10.42, hemoglobin of 11.1, hematocrit of 33.4. Chemistries, lipase is 125 on the 3rd, albumin and globin are normal. Serology, coronavirus is still pending. IMAGING STUDIES: MRCP did not show no evidence of cholelithiasis or choledocholithiasis either. No biliary tract dilatation. Initially CT showed pancreatitis and chronic diverticulosis without evidence of diverticulitis. Microbiology; blood cultures have been negative so far. ASSESSMENT: Ms. Rita Rushing is a 55-year-old lady with pancreatitis. Cause at this time is unknown. We will go ahead and order a lipid panel today to delineate if there are any increased triglycerides. If not, the patient can be discharged home safely to be followed with her PCP in 1-2 weeks. Low residue diet has been recommended and the patient to followup with primary care physician and also GI. Further recommendation per clinical course. MD TEE Marshall/BRIAN /[id number]
--- NOTE | 2020-06-16 09:47 | NUR ---
OK TO DISCHARGE PER DR. DECKER. NEW ORDERS IMPLEMENTED.
[2020-06-16] MEDS ORDERED: POTASSIUM CHLORIDE 20 MEQ TAB CR PO NR (10:00)
--- NOTE | 2020-06-16 10:35 | NUR ---
REMOVED PATIENTS IV. CATHETER TIP INTACT AND PRESSURE DRESSING APPLIED.
--- NOTE | 2020-06-16 11:21 | NUR ---
PATIENT DISCHARGED FROM FACILITY. PATIENT GATHERED ALL PERSONAL BELONGINGS, DISCHARGE INSTRUCTIONS, AND FOLLOW UP INFORMATION. PATIENT LEFT UNIT IN WHEELCHAIR AND WENT HOME VIA PRIVATE AUTO.
== END 2020-06-16 11:21 | disposition home or self-care (01) | DRG 871 ==
LOC: ER 23:14 → ERHOLD 06-13 00:35 → MED/SURG 06-13 13:35
PROVIDERS: ADMIT Internal Medicine; ATTEND Internal Medicine
DX: A41.9 Sepsis, unspecified organism (principal); K85.90 Acute pancreatitis without necrosis or infection, unspecified; E87.6 Hypokalemia; E11.9 Type 2 diabetes mellitus without complications; I10 Essential (primary) hypertension; Z98.84 Bariatric surgery status; M54.9 Dorsalgia, unspecified; Z88.8 Allergy status to other drugs, medicaments and biological substances; K57.90 Diverticulosis of intestine, part unspecified, without perforation or abscess without bleeding; D64.9 Anemia, unspecified; R94.5 Abnormal results of liver function studies; Z11.59 Encounter for screening for other viral diseases
CPT/HCPCS: 36415; 74177; 74181; 76700; 80053; 80061; 81001; 82150; 82550; 82553; 83605; 83690; 83735; 84132; 84484; 85025; 87040; 93005; 96361; 99284; J0360; J0500; J1170; J2270; J2405; J2543; J3480; J7030; Q9967; U0002